=== PATIENT | female | born 1975 | race Caucasian/White ===

== ENCOUNTER 2024-02-09 14:06 | Emergency (ER) | payer OTHER, SELFPAY ==
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
[2024-02-09 14:09] VITALS: BP 132/77; PULSE 79; RESP 18; TEMP 36.5; O2SAT 100; BMI 31.9
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
[2024-02-09 16:41] VITALS: BP 128/78; PULSE 71; RESP 20; TEMP 36.4; O2SAT 98
[2024-02-09 16:51] VITALS: BP 128/78; PULSE 71; RESP 20; TEMP 36.4; O2SAT 98
== END 2024-02-09 16:55 | disposition home or self-care (01) ==
LOC: HO.ED 16:53
PROVIDERS: Emergency Provider Emergency Medicine
DX: S39.012A Strain of muscle, fascia and tendon of lower back, initial encounter (principal); V43.62XA Car passenger injured in collision with other type car in traffic accident, initial encounter; Y93.89 Activity, other specified; Y92.410 Unspecified street and highway as the place of occurrence of the external cause; Y99.9 Unspecified external cause status
CPT/HCPCS: 72100; 99282; 99283

== ENCOUNTER → 2024-02-09 14:17 | Outpatient (BNV) | payer SELFPAY | PROVIDERS: Visit Provider Radiology Diagnostic Radiology | DX: M51.369 Other intervertebral disc degeneration, lumbar region without mention of lumbar back pain or lower extremity pain (principal) | CPT/HCPCS: 72100 ==